=== PATIENT | male | born 1990 | race Two or more races ===

== ENCOUNTER 2024-03-13 23:33 | Emergency (ER) | payer MEDICAID, OTHER ==
[~2024-03-13] VITALS: Ht 185.4 cm; Wt 184.0 kg
[2024-03-14 00:01] LABS: Basophils # (auto) 0.1 10 ^3/uL (0-0.2); Eosinophils # (auto) 0.1 10 ^3/uL (0-0.8)
[2024-03-14 00:03] LABS: Basophils % (auto) 0.6 % (0.0-2.0); Eosinophils % (auto) 0.4 % (0.0-7.0); Hematocrit 34.3 % (41.0-53.0); Hemoglobin 10.2 g/dL (13.5-17.5); Lymphocytes # (auto) 1.8 10 ^3/uL (0.4-5.4); Mean Corpuscular Hemoglobin 17.5 pg (28.0-32.0); Mean Corpuscular Hgb Conc. 29.7 g/dL (32.0-36.0); Mean Corpuscular Volume 58.9 fL (80.0-100.0); Monocytes # (auto) 1.1 10 ^3/uL (0-1.3); Monocytes % (auto) 8.6 % (0.0-12.0); Neutrophils # (auto) 10.1 10 ^3/uL (1.6-8.6); Neutrophils % (auto) 76.4 % (37.0-80.0); Nucleated Red Blood Cells % 0.2 %; Platelet Count (auto) 280 10^3/uL (140-450); Red Blood Cells 5.82 10^6/uL (4.5-5.90); White Blood Cell 13.2 10^3/uL (4.4-10.8)
[2024-03-14 00:08] VITALS: PULSE 119; RESP 19; O2SAT 95
[2024-03-14 00:14] LABS: Alanine Aminotransferase 14 U/L (7-40); Albumin 4.4 g/dL (3.2-4.8); Alkaline Phosphatase 65 U/L (46-116); Anion Gap 7 (5-15); Aspartate Aminotransferase 11 U/L (13-40); BUN/Creatinine Ratio 8.9 (10.0-20.0); Bilirubin, Total 2.1 mg/dL (0.2-1.0); Blood Urea Nitrogen 10 mg/dL (9-23); Calcium 9.2 mg/dL (8.7-10.4); Carbon Dioxide 26 mmol/L (20-30); Chloride 106 mmol/L (98-107); Glucose 110 mg/dL (74-106); Potassium 3.4 mmol/L (3.5-5.1); Sodium 139 mmol/L (136-145); Total Protein 7.4 g/dL (5.7-8.2)
[2024-03-14 00:54] LABS: Anisocytosis Slight; Hypochromia Marked; Large Platelets FEW; Platelet Estimate Adequate
[2024-03-14 00:55] LABS: Target Cell FEW
[2024-03-14] MEDS: KETOROLAC TROMETH 30 MG/ML 1ML VIAL IV ONE (01:47)
[2024-03-14] MEDS: MORPHINE SULFATE 4 MG/ML SYR/VIAL IV ONE (01:48)
[2024-03-14] MEDS: FUROSEMIDE 40 MG/4 ML VIAL IV ONE ×2 (01:49→04:14)
[2024-03-14 04:07] LABS: Urine Bacteria None Seen /hpf (None Seen)
[2024-03-14] MEDS ORDERED: POTA-36 PO (04:07)
[2024-03-14] MEDS ORDERED: FURO1TAB31 PO (04:07)
[2024-03-14 04:27] LABS: Amphetamine Screen, Urine Pos (NEGATIVE); Barbiturate Scree,Urine Neg (NEGATIVE); Benzodiazephine Screen, Urine Neg (NEGATIVE); Cocaine Screen, Urine Neg (NEGATIVE); Opiate Scree,Urine Neg (NEGATIVE)
[2024-03-14 04:28] LABS: Cannabinoid Screen, Urine Pos (NEGATIVE); Phencyclidine Screen, Urine Neg (NEGATIVE)
[2024-03-14 04:30] VITALS: BP 116/65; PULSE 106; RESP 16; TEMP 98.7; O2SAT 98
[2024-03-14 05:12] LABS: Urine Blood Negative /uL (Negative); Urine Clarity Clear (Clear); Urine Color Light-Yellow (Yellow); Urine Mucus FEW (None Seen); Urine Protein, UAD Negative (Negative); Urine Specific Gravity 1.009 (1.001-1.035); Urine Urobilinogen Normal (Negative); Urine WBC 2 /hpf (0 - 3)
== END 2024-03-14 04:35 | disposition home or self-care (01) ==
LOC: ER 23:33
DX: I50.9 Heart failure, unspecified (principal); R07.89 Other chest pain; R60.0 Localized edema; F17.210 Nicotine dependence, cigarettes, uncomplicated; F12.90 Cannabis use, unspecified, uncomplicated
CPT/HCPCS: 36415; 71045; 80053; 80307; 81001; 83880; 84484; 85025; 93005; 96374; 96375; 96376; 99285; J1885; J1940; J2270